=== PATIENT | female | born 1990 ===

== ENCOUNTER 2018-10-09 06:13 | Emergency (ER) | payer MEDICAID ==
[2018-10-09 06:28] VITALS: PULSE 88; RESP 18; TEMP 98.7; O2SAT 100
--- NOTE | 2018-10-09 06:46 | ED PDOC ---
HPI: Psych/Substance Abuse Time Seen by Provider: 10/09/18 06:38 Chief Complaint (Nursing): Psychiatric Evaluation Chief Complaint (Provider): Psychiatric Evaluation History Per: Patient History/Exam Limitations: no limitations Onset/Duration Of Symptoms: Days (earlier today ) Current Symptoms Are (Timing): Better Additional Complaint(s): 27 year old female with a past medical history of depression, presents to the ED for a crisis evaluation. Patient reports she was brought to the ED after a verbal altercation with her mom. She states her mom falsely said the patient is suicidal to the [place] [employer] and the patient disagrees. Patient is upset and crying in the course of confrontation. She states she has three children and currently wants to go home. Otherwise, she denies suicidal ideation or any other complaints. PMD: Non CPH Provider Past Medical History Reviewed: Historical Data, Nursing Documentation, Vital Signs Vital Signs: Last Vital Signs Temp 98.7 F 10/09/18 06:16 Pulse 88 10/09/18 06:16 Resp 18 10/09/18 06:16 BP 162/107 H 10/09/18 06:16 Pulse Ox 100 10/09/18 06:16 - Medical History PMH: Anemia, Anxiety, Depression, HTN Denies: Diabetes, Hepatitis, HIV, Chronic Kidney Disease, Seizures, Sexually Transmitted Disease - Surgical History Surgical History: - Family History Family History: States: Unknown Family Hx - Social History Current smoker - smoking cessation education provided: No Alcohol: None Drugs: Denies - Immunization History Hx Tetanus Toxoid Vaccination: No Hx Influenza Vaccination: No Hx Pneumococcal Vaccination: No - Home Medications Home Medications: Ambulatory Orders Medication Instructions Recorded Cetirizine HCl [Zyrtec Allergy] 10 mg PO DAILY 08/10/18 Fluticasone Nasal [Flonase] 1 actuation NS BID 08/10/18 - Allergies Allergies/Adverse Reactions: Allergies Allergy/AdvReac Type Severity Reaction Status Date / Time No Known Allergies Allergy Verified 08/10/18 19:37 Review of Systems ROS Statement: Except As Marked, All Systems Reviewed And Found Negative Psych: Negative for: Suicidal ideation, Other (homicidal ideation) Physical Exam - Reviewed Nursing Documentation Reviewed: Yes Vital Signs Reviewed: Yes - Physical Exam Appears: Positive for: Non-toxic, No Acute Distress Head Exam: Positive for: ATRAUMATIC, NORMAL INSPECTION, NORMOCEPHALIC Skin: Positive for: Normal Color, Warm, Dry. Negative for: Rash Eye Exam: Positive for: EOMI, Normal appearance, PERRL ENT: Positive for: Normal ENT Inspection Neck: Positive for: Normal, Painless ROM, Supple. Negative for: Decreased ROM Cardiovascular/Chest: Positive for: Regular Rate, Rhythm. Negative for: Murmur Respiratory: Positive for: Normal Breath Sounds. Negative for: Decreased Breath Sounds, Respiratory Distress Gastrointestinal/Abdominal: Positive for: Normal Exam, Soft. Negative for: Tenderness, Guarding, Rebound Back: Positive for: Normal Inspection Extremity: Positive for: Normal ROM. Negative for: Tenderness, Pedal Edema, Deformity Neurologic/Psych: Positive for: Alert, Oriented (x3) - ECG O2 Sat by Pulse Oximetry: 100 (RA) Pulse Ox Interpretation: Normal Medical Decision Making Medical Decision Making: Impression: 27 year old female presenting for referred crisis evaluation Plan: --1:1 Observation --Crisis evaluation --Reevaluation 07:[address] Voss by me pending reevaluation and disposition. Scribe Attestation: Documented by Noe Frederick, acting as a scribe for Meliton Jo MD Provider Scribe Attestation: All medical record entries made by the Scribe were at my direction and personally dictated by me. I have reviewed the chart and agree that the record accurately reflects my personal performance of the history, physical exam, medical decision making, and the department course for this patient. I have also personally directed, reviewed, and agree with the discharge instructions and disposition. Disposition - Clinical Impression Clinical Impression: Anxiety - Disposition Disposition: Transfer of Care Disposition Time: 07:00 Condition: STABLE Additional Instructions: FOLLOW-UP ADVISED. Instructions: Anxiety, Adult (DC) Forms: [employer] (Slovak) Patient Signed Over To: Urvashi Voss (pending reevaluation )
--- NOTE | 2018-10-09 07:11 | ED PDOC ---
- ECG O2 Sat by Pulse Oximetry: 100 (RA) Pulse Ox Interpretation: Normal Medical Decision Making Medical Decision Making: Time: 699 --Patient care endorsed by Dr. Jo, pending reevaluation and disposition. Time: 716 --Patient evaluation by wall worker deemed patient is not suicidal at this time. --Removed 1:1 observation at this time. Time: 733 --Patient has been diagnosed with Anxiety. --Patient is currently stable and will be discharged home. --Follow up instructions given. Scribe Attestation: Documented by Kris Sims, acting as a scribe for Urvashi Voss MD. Provider Scribe Attestation: All medical record entries made by the Scribe were at my direction and personally dictated by me. I have reviewed the chart and agree that the record accurately reflects my personal performance of the history, physical exam, medical decision making, and the department course for this patient. I have also personally directed, reviewed, and agree with the discharge instructions and disposition. Disposition - Clinical Impression Clinical Impression: Anxiety - POA Present On Arrival: None - Disposition Disposition: Routine/Home Disposition Time: 07:34 Condition: STABLE Additional Instructions: FOLLOW-UP ADVISED. Instructions: Anxiety, Adult (DC) Forms: [employer] (Central African)
[2018-10-09 08:26] VITALS: BP 138/90
== END 2018-10-09 07:57 | disposition home or self-care (01) ==
LOC: H.ER 06:13
DX: F41.9 Anxiety disorder, unspecified (principal); Z86.59 Personal history of other mental and behavioral disorders; I10 Essential (primary) hypertension

== ENCOUNTER 2018-10-10 20:51 | Inpatient (IN) | payer MEDICAID ==
[2018-10-10 20:58] VITALS: O2SAT 100
[2018-10-10 22:02] LABS: BASO # 0.1 K/uL (0.0-0.2); BASO % 0.8 % (0.0-2.0); EOS # 0.1 K/uL (0.0-0.7); EOS % 0.5 % (0.0-4.0); LYMPH # 3.5 K/uL (1.0-4.3); LYMPH % 35.6 % (20.0-40.0); MEAN CELL VOLUME 88.6 fl (81.0-99.0); MEAN CORPUSCULAR HEMOGLOBIN 29.9 pg (27.0-31.0); MEAN CORPUSCULAR HGB CONC 33.8 g/dL (33.0-37.0); MEAN PLATELET VOLUME 8.8 fl (7.2-11.7); MONO # 0.9 K/uL (0.0-0.8); MONO % 8.6 % (0.0-10.0); NEUT # 5.4 K/uL (1.8-7.0); NEUT % 54.5 % (50.0-75.0); NRBC % 0.1 % (0.0-0.0); RBC 4.69 Mil/uL (3.80-5.20); RED CELL DISTRIBUTION WIDTH 12.7 % (11.5-14.5); WHITE BLOOD COUNT 9.9 K/uL (4.8-10.8)
[2018-10-10 22:12] LABS: ALB/GLOB RATIO 1.4 (1.0-2.1); ALBUMIN 4.9 g/dL (3.5-5.0); ALT/SGPT 83 U/L (9-52); AST/SGOT 142 U/L (14-36); BLOOD UREA NITROGEN 10 mg/dl (7-17); CALCIUM 9.7 mg/dL (8.4-10.2); GFR NON-AFRICAN AMERICAN > 60
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
[2018-10-10] MEDS ORDERED: Alum-Mag Hydrox-Simethicone Susp (30 mL) PO PRN (23:52)
[2018-10-10] MEDS ORDERED: DiphenhydrAMINE 50 mg/ml Inj IM PRN (23:52)
[2018-10-10] MEDS ORDERED: Magnesium Hydroxide Susp 30 ml UD PO PRN (23:52)
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
[2018-10-11] MEDS ORDERED: Risperidone M tab 1 MG PO STA (10:25)
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
[2018-10-11 12:40] LABS: SQUAMOUS EPITHIAL 5 /hpf (0-5); URINE BACTERIA RARE (<OCC); URINE BILIRUBIN NEGATIVE (NEGATIVE); URINE BLOOD SMALL (NEGATIVE); URINE CLARITY SLIGHTY-CLOUDY (Clear); URINE COLOR YELLOW (YELLOW); URINE GLUCOSE (UA) NEG (NEGATIVE); URINE LEUKOCYTE ESTERASE NEG Leu/uL (Negative); URINE PROTEIN NEGATIVE (NEGATIVE)
[2018-10-11 13:05] LABS: BARBITURATES, UR NEGATIVE (NEGATIVE); BENZODIAZEPINES, UR NEGATIVE (NEGATIVE); OPIATES, UR NEGATIVE (NEGATIVE); PHENCYCLIDINE, UR NEGATIVE (NEGATIVE)
--- NOTE | 2018-10-11 14:48 | RAD ---
Date of service: 10/11/2018 HISTORY: routine COMPARISON: No prior. FINDINGS: LUNGS: The lungs are well inflated and clear. PLEURA: No pleural effusions or pneumothorax. CARDIOVASCULAR: The heart is normal in size. No aortic atherosclerotic calcifications present. OSSEOUS STRUCTURES: Within normal limits for the patient's age. VISUALIZED UPPER ABDOMEN: Normal. OTHER FINDINGS: None. IMPRESSION: No active pulmonary disease.
[2018-10-11] MEDS: OXcarbazepine 300 mg/5 ml Syringe PO SCH (17:12)
--- NOTE | 2018-10-11 18:19 | CARD ---
APPROVED REPORT Date of service: 10/11/2018 EKG Measurement Heart [id number] <Conclusion> Normal sinus rhythm Normal ECG
[2018-10-11] MEDS ORDERED: Risperidone M tab 1 MG PO SCH (22:00)
[2018-10-12] MEDS: OXcarbazepine 300 mg/5 ml Syringe PO SCH ×2 (09:00→19:10)
[2018-10-12] MEDS ORDERED: Venlafaxine 37.5 mg ER Cap PO SCH (09:00)
[2018-10-12] MEDS ORDERED: Risperidone M tab 1 MG PO SCH (09:00)
--- NOTE | 2018-10-12 14:21 | PCM.PYCHPN ---
Psychiatric Progress Note - Psychiatric Progress Note Patient seen today, length of contact: pt evaluated discussed with team chart reviewed Patient Chief Complaint: I want to go home Problems Identified/Issues Discussed: pt evaluated angry, irritable, labile, threatening towards staff, presenting with aggressive behaviour m banging the phone, expressing paranoid delusions, towards staff and her family, refusing medications, needs frequent redirection, pt had to be give IM prn medications as she was threatening and presenting as danger to self and others Medical Problems: at least two inpatient hospitalizations, pt non compliant DSM 5 Symptoms Update: schizoaffective disorder bipolar Medication Change: Yes (increase risperidone ) Medical Record Reviewed: Yes Mental Status Examination - Cognitive Function Orientation: Person, Place Attention: Poor Concentration: Poor Association: Loose Fund of Knowledge: Poor Decription of patient's judgement and insights: poor insight and judgment - Mood Mood: Anxious - Affect Additional comments: angry , labile - Speech Speech: Loud - Formal Thought Process Formal Thought Process: Hallucinations, Delusions, Paranoia - Suicidal Ideation Suicidal Ideation: No - Homicidal Ideation Homicidal Ideation: Yes Goal/Treatment Plan - Goal/Treatment Plan Need for Continued Stay: Remain at risks for inpatient hospitalization, Discharge may exacerbated symptoms Progress Toward Problem(s) and Goals/Treatment Plan: pt on the unit refusing medications, verbally aggressive to staff , signed 48 hour notice requesting to be discharged , patient referred for screening for involuntary admission as she continues to be danger for self and others , pt accepted and awaiting a bed increase risperidone 3mg qhs encourage medication compliance coallteral infroamtion from family cbt group and supportive therapy
[2018-10-12] MEDS: Risperidone M tab 1 MG PO SCH (21:19)
--- NOTE | 2018-10-13 09:03 | PCM.PYCHPN ---
Psychiatric Progress Note - Psychiatric Progress Note Patient seen today, length of contact: Pt evaluated, chart reviewed Patient Chief Complaint: "I'm fine" Problems Identified/Issues Discussed: Patient was screened by [facility] and found to meet criteria for involuntary p sychiatric admission. She is guarded and minimizing symptoms. She is easily agitated and labile. She is currently refusing medications. Medication Change: No Medical Record Reviewed: Yes Consults ordered or reviewed: Medicine consult Mental Status Examination - Cognitive Function Orientation: Person, Place, Situation, Time Memory: Intact Attention: Poor Concentration: Poor Association: Loose Fund of Knowledge: WNL Decription of patient's judgement and insights: Poor I/J - Mood Mood: Neutral - Affect Affect: Other (Labile) - Speech Speech: Appropriate - Formal Thought Process Formal Thought Process: Delusions, Paranoia Psychotic Thoughts and Behaviors: +Paranoia - Suicidal Ideation Suicidal Ideation: No - Homicidal Ideation Homicidal Ideation: No Goal/Treatment Plan - Goal/Treatment Plan Need for Continued Stay: Remain at risks for inpatient hospitalization, Discharge may exacerbated symptoms Progress Toward Problem(s) and Goals/Treatment Plan: Schizoaffective Disorder -Transfer to [facility] for involuntary psychiatric admission when bed is available -Continue to offer medications -Medicine consult
[2018-10-13] MEDS: OXcarbazepine 300 mg/5 ml Syringe PO SCH ×2 (09:28→19:21)
[2018-10-13 09:30] VITALS: RESP 18
[2018-10-13 17:21] VITALS: BP 146/92; PULSE 92; TEMP 98.2
[2018-10-13] MEDS: Risperidone M tab 1 MG PO SCH (21:29)
--- NOTE | 2018-10-14 08:25 | PCM.PYCHDC ---
Mental Status Examination - Mental Status Examination Orientation: Person, Place, Situation, Time Memory: Intact Mood: Neutral Affect: Other (Labile) Speech: Appropriate Attention: Poor Concentration: Poor Association: Loose Formal Thought Process: Delusions, Paranoia, Loosening of associations Description of patient's judgement and insight: Poor I/J Psychotic Thoughts and Behaviors: +Paranoia Suicidal Ideation: No Current Homicidal Ideation?: No Discharge Summary - Discharge Note Reason for Hospitalization: As per initial HPI note: pt is 27 ys old female with previous psychiatric diagnosis of psychotic disorder/ depression and cannabis abuse, brought to ER by EMS due to psychotic disorganized behaviour and destruction of property, pt has not been compliant with medications for at least two years, for past few days had decreased sleep, pacing all night pt started to exhibit disorganized behaviour, observed talking to herself and responding to internal stimuli she also started exhibiting aggressive behaviour, punching huynh, causing holes and destroying her furniture on the unit pt is guarded evasive paranoid, poor eye contact refusing to have any medical check up, labile with unprovoked crying episodes, with delusions of persecution stating that her whole family members are against her and there are people in the neighborhood planning against her since childhood, pt has no insight into illness, refusing medications, appears internally preoccupied denied command hallucinations denied s/hi collateral information/pt sister Trini ' As per Trini, pt has not slept for the past three days, non-compliant with medication since 2 years ago, lost her job and vandalized parents home. Pt punched the wall and left two holes in the wall , broke all her belongings off her dresser and broke parents door. Pt attempted to take the girls outside for a walk to visit pt D.J friend. Pt reports pt was last admitted to [facility] three years ago and dx with psychosis. Pt is combative with outburst, irritable, mood swings, and talks to someone who is not there while listening to music. Pt was yelling out the wi ndow to no one saying you fucking bitch as per sister Trini. Pt is not sleeping and is constantly moving. As per Trini, pt appeared to be on something today and when Trini questioned pt, pt went into her room. Consultations:: List each consultation separately and include: 1. Reason for request. 2. Findings. 3. Follow-up Consultations: Medicine consult Summary of Hospital Course include:: 1. Description of specific treatment plan utilized for patients during their course of treatmen. 2. Summarize the time- course for resolution of acute symptoms and/or regressed behaviors. 3. Describe issues identified and worked on during hospitalization. 4. Describe medication utilized. 5. Describe medical problems identified and treated. 6. Reassessment of suicide risk Summary of Hospital Course: Patient was admitted to the psychiatry unit. Individual and group therapy were provided. Patient refused prescribed medications (Benztropin 1 mg PO HS, Trileptal 300 mg PO BID and Risperdal 3 mg PO HS). She submitted a 48 hr letter requesting to be discharged; was screened, accepted for involuntary psychiatric admission and transferred to other acute care hospital for continued treatment. - Final Diagnosis (DSM 5) Condition upon Discharge: SERIOUS DSM 5: Schizoaffective Disorder Disposition: Trans to Other Acute Care Hosp Follow-up Treatment Plan: Schizoaffective Disorder -Transfer for involuntary psychiatric admission - Smoking Cessation Smoking Cessation Medication prescribed: No Reason for not providing: Not indicated - Antipsychotic Medications Pt discharged on 2 or more routine antipsychotic medications: No
--- NOTE | 2018-10-14 22:49 | CP.PCM.CON ---
History of Present Illness - History of Present Illness History of Present Illness: This is a 27 y/o female admitted for Bipolar disorder with psychosis features. She has a hx of HTN but not on anymedications She denies any other medical issues. Past Patient History - Infectious Disease Hx of Infectious Diseases: None - Past Social History Smoking Status: Former Smoker - CARDIAC Hx Hypertension: Yes - PULMONARY Hx Tuberculosis: No - NEUROLOGICAL Hx Seizures: No - HEENT Hx HEENT Problems: No - RENAL Hx Chronic Kidney Disease: No - ENDOCRINE/METABOLIC Hx Endocrine Disorders: No - HEMATOLOGICAL/ONCOLOGICAL Hx Anemia: Yes Hx Human Immunodeficiency Virus (HIV): No - INTEGUMENTARY Hx Dermatological Problems: No - MUSCULOSKELETAL/RHEUMATOLOGICAL Hx Musculoskeletal Disorders: No - GASTROINTESTINAL Hx Gastrointestinal Disorders: No - GENITOURINARY/GYNECOLOGICAL Hx Sexually Transmitted Disorders: No - PSYCHIATRIC Hx Anxiety: Yes Hx Bipolar Disorder: Yes Hx Depression: Yes - SURGICAL HISTORY Hx Section: Yes (x2) - ANESTHESIA Hx Anesthesia: Yes Hx Anesthesia Reactions: No Hx Malignant Hyperthermia: No Has any member of the family had a problem w/ anesthesia?: No Meds Home Medications: Home Medication List Medication Instructions Recorded Confirmed Type Benztropine [Cogentin] 1 mg PO HS tab 10/13/18 Rx OXcarbazepine [Trileptal] 300 mg PO BID syr 10/13/18 Rx Risperidone [Risperdal M-TAB] 3 mg PO HS odt 10/13/18 Rx Allergies/Adverse Reactions: Allergies Allergy/AdvReac Type Severity Reaction Status Date / Time No Known Allergies Allergy Verified 10/10/18 20:53 Physical Exam - Head Exam Head Exam: NORMAL INSPECTION - Eye Exam Eye Exam: Normal appearance - ENT Exam ENT Exam: Mucous Membranes Moist - Respiratory Exam Respiratory Exam: Clear to Auscultation Bilateral - Cardiovascular Exam Cardiovascular Exam: REGULAR RHYTHM - GI/Abdominal Exam GI & Abdominal Exam: Normal Bowel Sounds - Neurological Exam Neurological exam: CN II-XII Intact, Normal Gait Results - Vital Signs Recent Vital Signs: Last Vital Signs Temp 98.2 F 10/13/18 17:00 Pulse 92 H 10/13/18 17:00 Resp 18 10/13/18 17:00 BP 146/92 H 10/13/18 17:00 Pulse Ox 100 10/11/18 04:36 - Labs Result Diagrams: 10/10/18 21:59 10/10/18 21:59 Assessment & Plan (1) Hypertension Status: Acute (2) Schizophrenia Status: Acute - Assessment and Plan (Free Text) Plan: low salt diet will monitor patient refused to take any meds for HTN for now.
== END 2018-10-13 23:05 | disposition short-term general hospital (02) | DRG 430 ==
LOC: H.ER 20:51 → H.ERHOLD 22:24 → H.PSYCH 23:50
PROVIDERS: ADMIT Psychiatry & Neurology Psychiatry; ATTEND Psychiatry & Neurology Psychiatry
PROC: GZ51ZZZ Individual Psychotherapy, Behavioral (ICD-10-PCS; principal; 2018-10-10)
PROC: GZ56ZZZ Individual Psychotherapy, Supportive (ICD-10-PCS; 2018-10-10)
DX: F31.64 Bipolar disorder, current episode mixed, severe, with psychotic features (principal); I10 Essential (primary) hypertension; Z79.899 Other long term (current) drug therapy; Z87.891 Personal history of nicotine dependence; Z91.14 Patient's other noncompliance with medication regimen; Z91.19 Patient's noncompliance with other medical treatment and regimen; Z91.410 Personal history of adult physical and sexual abuse; D64.9 Anemia, unspecified; F12.10 Cannabis abuse, uncomplicated; F41.9 Anxiety disorder, unspecified

== ENCOUNTER 2018-11-03 15:20 | Inpatient (IN) | payer MEDICAID ==
[2018-11-03 15:30] VITALS: O2SAT 100
--- NOTE | 2018-11-03 16:05 | ED PDOC ---
HPI: Psych/Substance Abuse Time Seen by Provider: 11/03/18 15:29 Chief Complaint (Nursing): Psychiatric Evaluation Chief Complaint (Provider): Psychiatric Evaluation History Per: Patient History/Exam Limitations: no limitations Additional Complaint(s): 27 year old female with a history of schizophrenia presents to the ED for psychiatric evaluation. Today, patient had a mobile crisis wellness check at home. During which it was discovered she has not been taking her medications because she does not like the way they make her feel. Crisis recommended she come to this ED for further evaluation. Patient was recently discharged from [facility] on 10/26/18 and has not taken her medications since. Patient denies hallucinations to provider, despite reporting she had them to the nurse. She denies SI, HI, drug or alcohol abuse. Patient is reserved in providing history. PMD: [place] Past Medical History Reviewed: Historical Data, Nursing Documentation, Vital Signs Vital Signs: Last Vital Signs Temp 98.6 F 11/03/18 15:27 Pulse 74 11/03/18 15:27 Resp 18 11/03/18 15:27 BP 124/66 11/03/18 15:27 Pulse Ox 100 11/03/18 15:27 - Medical History PMH: Anemia, Anxiety, Bipolar Disorder, Depression, HTN Denies: Diabetes, Hepatitis, HIV, Chronic Kidney Disease, Seizures, Sexually Transmitted Disease - Surgical History Surgical History: - Family History Family History: States: Unknown Family Hx - Social History Alcohol: Other (denies) Drugs: Denies - Immunization History Hx Tetanus Toxoid Vaccination: No Hx Influenza Vaccination: No Hx Pneumococcal Vaccination: No - Home Medications Home Medications: Ambulatory Orders Medication Instructions Recorded Benztropine [Cogentin] 1 mg PO HS tab 10/13/18 OXcarbazepine [Trileptal] 300 mg PO BID syr 10/13/18 Risperidone [Risperdal M-TAB] 3 mg PO HS odt 10/13/18 - Allergies Allergies/Adverse Reactions: Allergies Allergy/AdvReac Type Severity Reaction Status Date / Time No Known Allergies Allergy Verified 10/10/18 20:53 Review of Systems ROS Statement: Except As Marked, All Systems Reviewed And Found Negative (and as per HPI) Physical Exam - Reviewed Nursing Documentation Reviewed: Yes Vital Signs Reviewed: Yes - Physical Exam Appears: Positive for: No Acute Distress (but tearful) Head Exam: Positive for: ATRAUMATIC, NORMOCEPHALIC Skin: Positive for: Warm, Dry Eye Exam: Positive for: EOMI, PERRL ENT: Positive for: Normal ENT Inspection Neck: Positive for: Painless ROM, Supple Cardiovascular/Chest: Positive for: Regular Rate, Rhythm. Negative for: Murmur Respiratory: Positive for: Normal Breath Sounds. Negative for: Respiratory Distress Gastrointestinal/Abdominal: Positive for: Soft. Negative for: Tenderness Back: Positive for: Normal Inspection. Negative for: Decreased ROM Extremity: Positive for: Normal ROM. Negative for: Deformity Lymphatic: Negative for: Adenopathy Neurological/Psych: Positive for: Awake, Alert, Oriented (x3), Mood/Affect (normal mood but somewhat angry and flat affect), Other (does not appear to have any internal stimuli ) - Laboratory Results Result Diagrams: 11/03/18 16:10 11/03/18 16:10 - ECG O2 Sat by Pulse Oximetry: 100 (RA) Pulse Ox Interpretation: Normal Medical Decision Making Medical Decision Making: Time: 1530 Impression: schizophrenia, noncompliant with medication Plan: --Alcohol serum --CMP --Urine drug screen --Valproic acid --Crisis evaluation --u preg --u dip --CBC Medically stable for psychiatric admission if necessary Time: 1827 --Patient seen by crisis, patient to be admitted under Dr. White. Diagnoses Schizoaffective disorder and bipolar. Scribe Attestation: Documented by Kristina Vargas, acting as a scribe for Kim Lopez MD. Provider Scribe Attestation: All medical record entries made by the Scribe were at my direction and personally dictated by me. I have reviewed the chart and agree that the record accurately reflects my personal performance of the history, physical exam, medical decision making, and the department course for this patient. I have also personally directed, reviewed, and agree with the discharge instructions and disposition. Disposition - Clinical Impression Clinical Impression: Schizophrenia - Disposition Disposition Time: 18:28 Condition: STABLE - Pt Status Changed To: Hospital Disposition Of: Inpatient - Admit Certification Admit to Inpatient:: After my assessment, the patient will require hospitalization for at least two midnights. This is because of the severity of symptoms shown, intensity of services needed, and/or the medical risk in this patient being treated as an outpatient. - POA Present On Arrival: None
[2018-11-03 16:15] LABS: BASO # 0.1 K/uL (0.0-0.2); BASO % 0.6 % (0.0-2.0); EOS # 0.1 K/uL (0.0-0.7); HEMOGLOBIN 13.8 g/dL (12.0-16.0); LYMPH # 3.2 K/uL (1.0-4.3); MEAN CELL VOLUME 89.7 fl (81.0-99.0); MEAN CORPUSCULAR HEMOGLOBIN 30.7 pg (27.0-31.0); MEAN CORPUSCULAR HGB CONC 34.2 g/dL (33.0-37.0); MEAN PLATELET VOLUME 8.5 fl (7.2-11.7); MONO # 0.7 K/uL (0.0-0.8); MONO % 8.3 % (0.0-10.0); NEUT # 4.2 K/uL (1.8-7.0); NEUT % 51.1 % (50.0-75.0); NRBC % 0.1 % (0.0-0.0); RBC 4.48 Mil/uL (3.80-5.20); RED CELL DISTRIBUTION WIDTH 13.1 % (11.5-14.5); WHITE BLOOD COUNT 8.2 K/uL (4.8-10.8)
[2018-11-03 16:42] LABS: ALB/GLOB RATIO 1.3 (1.0-2.1); ALBUMIN 4.6 g/dL (3.5-5.0); ALT/SGPT 44 U/L (9-52); AST/SGOT 43 U/L (14-36); BLOOD UREA NITROGEN 17 mg/dl (7-17); CALCIUM 9.6 mg/dL (8.4-10.2); GFR NON-AFRICAN AMERICAN > 60
[2018-11-03 17:28] LABS: BARBITURATES, UR NEGATIVE (NEGATIVE); BENZODIAZEPINES, UR NEGATIVE (NEGATIVE); OPIATES, UR NEGATIVE (NEGATIVE); PHENCYCLIDINE, UR NEGATIVE (NEGATIVE)
[2018-11-03] MEDS ORDERED: DiphenhydrAMINE 50 mg/ml Inj IM PRN (20:53)
[2018-11-03] MEDS ORDERED: Alum-Mag Hydrox-Simethicone Susp (30 mL) PO PRN (20:53)
[2018-11-03] MEDS ORDERED: Magnesium Hydroxide Susp 30 ml UD PO PRN (20:53)
[2018-11-03] MEDS: Divalproex 500 mg ER (ONCE DAILY formulation) PO SCH (22:14)
[2018-11-03 22:38] LABS: SQUAMOUS EPITHIAL 11 /hpf (0-5); URINE BACTERIA RARE (<OCC); URINE BILIRUBIN NEGATIVE (NEGATIVE); URINE BLOOD NEGATIVE (NEGATIVE); URINE CLARITY CLOUDY (Clear); URINE COLOR YELLOW (YELLOW); URINE GLUCOSE (UA) NEG (NEGATIVE); URINE LEUKOCYTE ESTERASE NEG Leu/uL (Negative); URINE PROTEIN NEGATIVE (NEGATIVE); URINE UROBILINOGEN 0.2-1.0 mg/dL (0.2-1.0)
--- NOTE | 2018-11-03 22:40 | PCM.BM ---
<NadirRosalina Isabelle - Last Filed: 11/03/18 22:36> Treatment Plan Problems - Problems identified on initial assessmt Medication nonadherence Date Initiated: 11/03/18 Time Initiated: 22:37 Assessment reference: NA Status: Active Auditory Hallucinations Date Initiated: 11/03/18 Time Initiated: 22:37 Assessment reference: NA Status: Active Altered Thought Process Date Initiated: 11/03/18 Time Initiated: 22:38 Assessment reference: NA Status: Active Treatment assets and liabiliti Patient Assests: cooperative, ADL independent, physically healthy, good support system, negotiates basic needs Patient Liabilities: relationship conflicts, substance abuse - Milieu Protocol Maintain good personal hygiene: daily Encourage regular showers, every shift Remind patient to perform daily oral care, every shift Assist patient to perform ADL's Conduct patient checks and document Observation sheet: Q15 minutes Maintain personal safety: every shift Educate patient to report safety concerns to staff, every shift Monitor environment for contraband/sharps Medication safety: Monitor for expected outcome, potential side effects: every shift, Assess barriers to learning: every shift, Assess readiness for medication education: every shift <Richard Cevallos - Last Filed: 11/04/18 15:46> Family Contact Family involvement: Family/SO is involved Family contact: Patient agrees to contact, Family has been contacted by patient, Telephone contact initiated by staff Family contact name: Hailey - Sister Family contacted how many times per week?: 2 Family contact comment: Pt provided blog writer with verbal consent to speak with her sister, Hailey. Grooming Assistant spoke with Hailey [phone] to inform her that pt has again signed a 48 hour notice and the unit has already initiated the [facility] [place]. Process re-explained to Hailey and let her know that family will be contact each step of the way. Hailey reported that pt was recently released from [facility] and she did not appear any better upon discharge. Family advocated for continued hospitalization without avail. Family also petitioned for pt to be administered an antipsychotic injection, but [facility] did not initiate. Pt refused to take her medications as soon as she was discharged. - Goals for Treatment Patient goals for treatment: Pt unable to provide goals as she actively wants to leave and signed a 48 hour notice. Discharge/Continuing Care - Education Needs Education Needs: Family Medication, Family Diagnosis/Disease Process, Family Coping Skills, Family Placement options, Family Community resources, Family Aftercare Safety Plan, Patient Medication, Patient Diagnosis/Disease Process, Patient Coping Skills, Patient Placement options, Patient Community resources, Patient Aftercare Safety Plan - Discharge Discharge Criteria: Tolerates medication w/o severe side effects, Free of paranoid thoughts, Free of agitation, Normal sleep pattern, Ability to care for self, Reduction of target symptoms Discharge to:: Home, With Family - Treatment Team Participation Discussed with Family/SO: Yes Was Patient/Family/SO present at Treatment Team Meeting: Yes <Tone White - Last Filed: 11/05/18 13:34> - Diagnosis (1) Schizoaffective disorder Status: Acute Interventions: start risperidone and depakote 11/05/18 13:33
--- NOTE | 2018-11-04 13:14 | PCM.PSYCH ---
Initial Psychiatric Evaluation - Initial Psychiatric Evaluation Chief Complaint (in patient's own words): I am hearing music in my head History of Present Illness and Precipitating Events: pt is 27 ys old female with diagnosis of schizoaffective disorder, non compliant with medications or follow up brought to ER by mobile crisis due to non compliance with medications, resulting in disorganized behaviour and destruction of property pt on evaluation, reported that she has not been compliant with medications, presenting with labile affect, internally preoccupied, laughing inappropriately and responding to internal stimuli with thought blocking , pt presenting with limited insight reporting she does not need medications, pt reported having auditory hallucinations, of music and mumbling voices, denied command ahllucinations, denied active thoughts of self harm on the unit collateral information /pt's mother, Cathi GarciaInhjteu-[phone], whom reported that pt has been admitted to [facility] ED for about 3 days about 2 weeks and she was recently discharge from [facility] (pt stayed there for 13 days and was discharged on 10/26/18). Pt's mother reported that after pt had her second child she was diagnosed with depression and then she changed her demeanors. Pt's mother reported that pt was stressed out for a while and she believes pt had a "mental break down" that caused pt become diagnosed with Schizoaffective Disorder Bipolar Type. Pt's mother reported that pt does not sleep at all and she is usually pacing back and forth. Pt's mother reported that pt has 2 daughters and as being the grandmother;she has taken charge of caring for them. Pt's mother reported that pt does not want to take her psychotropic medication and she has been exhibiting bizarre behaviors, whereas pt "stares" at the ceiling and then laughs histerically. Pt's mother reported that she has noticed that pt continuously responds to internal stimuli. Pt's mother reported when pt becomes upset she throws stuff on the floor. Current Medications: Active Medications Generic Name Dose Route Start Last Admin Trade Name Freq PRN Reason Stop Dose Admin Acetaminophen 650 mg 11/03/18 20:53 Tylenol 325mg Tab PO Q4 PRN Pain, moderate (4-7) Al Hydrox/Mg Hydrox/Simethicone 30 ml 11/03/18 20:53 Maalox Plus 30 Ml PO Q4 PRN Dyspepsia Benztropine Mesylate 1 mg 11/04/18 22:00 Cogentin PO HS HUGO Diphenhydramine HCl 50 mg 11/03/18 20:53 Benadryl IM Q6 PRN Extrapyramidal S/S Unable PO Diphenhydramine HCl 50 mg 11/03/18 20:57 Benadryl PO HS PRN Sleep Divalproex Sodium 500 mg 11/03/18 22:00 11/03/18 22:14 Depakote Er(Once Daily) PO 500 mg HS HUGO Administration Divalproex Sodium 500 mg 11/04/18 12:[address](*Bid*) PO DAILY HUGO Haloperidol 5 mg 11/03/18 20:53 Haldol PO Q4 PRN Agitation Haloperidol Lactate 5 mg 11/03/18 20:53 Haldol IM Q4 PRN Agitation, Unable to Take PO Lorazepam 2 mg 11/03/18 20:53 Ativan IM Q4 PRN Anxiety/Agitation,Unable PO Lorazepam 1 mg 11/03/18 20:53 Ativan PO Q8 PRN Anxiety/Agitation Magnesium Hydroxide 30 ml 11/03/18 20:53 Milk Of Magnesia PO HS PRN Constipation Risperidone 2 mg 11/03/18 22:00 11/03/18 22:14 Risperdal Tab PO 2 mg HS HUGO Administration Risperidone 2 mg 11/04/18 12:45 Risperdal M-Tab PO DAILY HUGO Past Psychiatric History - Past Psychiatric History Explanation of prior treatment: multiple involuntary admissions, hx of non compliance History of Abuse: denied History of ETOH/Drug Use: denied Pertinent Medical Hx (Current Medical&Sleep Prob, Allergies): Allergies Allergy/AdvReac Type Severity Reaction Status Date / Time No Known Allergies Allergy Verified 10/10/18 20:53 Benztropine [Cogentin] 1 mg PO HS tab 10/13/18 OXcarbazepine [Trileptal] 300 mg PO BID syr 10/13/18 Risperidone [Risperdal M-TAB] 3 mg PO HS odt 10/13/18 Mental Status Examination - Personal Presentation Personal Presentation: Looks stated age Additional comments: over weight - Affect Additional comments: labile angry, irritable - Motor Activity Motor Activity: Psychomotor Agitation - Reliability in Providing Information Reliability in Providing Information: Poor, due to alteration in thoughts, Poor, due to altered mood - Speech Speech: Tangential - Mood Mood: Anxious - Formal Thought Process Formal Thought Process: Hallucinations, Delusions, Paranoia - Hallucinations/Delusions Hallucinations: Auditory - Obsessions/Compulsions Obsessions: No Compulsions: No - Cognitive Functions Orientation: Person Sensorium: Alert Attention/Concentration: Easily distracted Judgement: Imparied, as evidence by: Poor judgement, Imparied, as evidence by: Lack of insight into illness - Risk Risk: Elopement, Diminished functioning - Strength & Assets Inventory Strength & Assets Inventory: Family support - Limitations Additional comments: poor compliance DSM 5 DX - DSM 5 DSM 5 Diagnosis: schizoaffective disorder bipolar - Recommended/Plan of Treatment Treatment Recommendations and Plan of Treatment: start risperidone 2mg bid cogentin 1mg bid depakote 500mg bid encourage medication compliance internal medicine consult
[2018-11-04] MEDS: Risperidone M TAB 2 MG PO SCH (13:51)
[2018-11-04] MEDS: Divalproex 500 mg DR(BID formulation) PO SCH (14:30)
[2018-11-04] MEDS: Divalproex 500 mg ER (ONCE DAILY formulation) PO SCH (22:11)
--- NOTE | 2018-11-05 09:09 | CARD ---
APPROVED REPORT Date of service: 11/04/2018 EKG Measurement Heart [id number] <Conclusion> Normal sinus rhythm Normal ECG
[2018-11-05] MEDS: Risperidone M TAB 2 MG PO SCH (11:35)
[2018-11-05] MEDS: Divalproex 500 mg DR(BID formulation) PO SCH (11:37)
--- NOTE | 2018-11-05 13:33 | PCM.PYCHPN ---
Psychiatric Progress Note - Psychiatric Progress Note Patient seen today, length of contact: pt evaluated discussed with team chart reviewed Patient Chief Complaint: I want to leave Problems Identified/Issues Discussed: pt seen in treatment team, presenting with anxious mood, and labile affect, requesting to be discharged with lack of insight into illness, pt continues to be floridly psychotic, internally pre occupied, laughing inappropriately , responding to internal stimuli, denied command hallucinations, denied suicidal or homicidal ideation pt continues to refuse medications Medical Problems: multiple involuntary admissions, hx of non compliance DSM 5 Symptoms Update: schizoaffective disorder bipolar type Medication Change: No Medical Record Reviewed: Yes Mental Status Examination - Cognitive Function Orientation: Person Attention: WNL Concentration: Poor Association: Loose Fund of Knowledge: Poor Decription of patient's judgement and insights: poor insight and judgment - Mood Mood: Anxious, Euphoric - Affect Affect: Broad - Speech Speech: Loud - Formal Thought Process Formal Thought Process: Hallucinations, Delusions, Paranoia - Suicidal Ideation Suicidal Ideation: No - Homicidal Ideation Homicidal Ideation: No Goal/Treatment Plan - Goal/Treatment Plan Need for Continued Stay: Remain at risks for inpatient hospitalization, Discharge may exacerbated symptoms Progress Toward Problem(s) and Goals/Treatment Plan: pt has no insight into illness, refusing medications and requesting to be discharged 'pt was screened and accepted for involuntary admission, awaiting a bed risperidone 2mg bid cogentin 1mg bid depakote 500mg bid encourage medication compliance
[2018-11-05 16:05] VITALS: BP 144/83; PULSE 90; RESP 20; TEMP 98.1
--- NOTE | 2018-11-05 17:50 | CP.PCM.CON ---
History of Present Illness - History of Present Illness History of Present Illness: 27 yo female admitted to psych for schizoaffective disorder Patient seen and examined at bedside. No complaints offered at this time however states wants to leave denies chest pain, palpitations, abdominal pain, or sob. admits to audiatory hallucinations Meds: as per chart Allergies: as per chart Review of Systems - Review of Systems All systems: reviewed and no additional remarkable complaints except (mentioned above) Past Patient History - Infectious Disease Hx of Infectious Diseases: None - Past Social History Alcohol: Other (denies) Drugs: Denies - CARDIAC Hx Hypertension: Yes - PULMONARY Hx Tuberculosis: No - NEUROLOGICAL Hx Seizures: No - HEENT Hx HEENT Problems: No - RENAL Hx Chronic Kidney Disease: No - ENDOCRINE/METABOLIC Hx Endocrine Disorders: No - HEMATOLOGICAL/ONCOLOGICAL Hx Anemia: Yes Hx Human Immunodeficiency Virus (HIV): No - INTEGUMENTARY Hx Dermatological Problems: No - MUSCULOSKELETAL/RHEUMATOLOGICAL Hx Musculoskeletal Disorders: No - GASTROINTESTINAL Hx Gastrointestinal Disorders: No - GENITOURINARY/GYNECOLOGICAL Hx Sexually Transmitted Disorders: No - PSYCHIATRIC Hx Anxiety: Yes Hx Bipolar Disorder: Yes Hx Depression: Yes - SURGICAL HISTORY Hx Section: Yes (x2) - ANESTHESIA Hx Anesthesia: Yes Hx Anesthesia Reactions: No Hx Malignant Hyperthermia: No Meds Allergies/Adverse Reactions: Allergies Allergy/AdvReac Type Severity Reaction Status Date / Time No Known Allergies Allergy Verified 10/10/18 20:53 - Medications Medications: Current Medications Acetaminophen (Tylenol 325mg Tab) 650 mg PO Q4 PRN PRN Reason: Pain, moderate (4-7) Al Hydrox/Mg Hydrox/Simethicone (Maalox Plus 30 Ml) 30 ml PO Q4 PRN PRN Reason: Dyspepsia Benztropine Mesylate (Cogentin) 1 mg PO HS [facility] Last Admin: 11/04/18 22:10 Dose: Not Given Diphenhydramine HCl (Benadryl) 50 mg IM Q6 PRN PRN Reason: Extrapyramidal S/S Unable PO Diphenhydramine HCl (Benadryl) 50 mg PO HS PRN PRN Reason: Sleep Divalproex Sodium (Depakote Er(Once Daily)) 500 mg PO HS [facility] Last Admin: 11/04/18 22:11 Dose: Not Given Divalproex Sodium (Depakote Dr(*Bid*)) 500 mg PO DAILY [facility] Last Admin: 11/05/18 11:37 Dose: Not Given Haloperidol (Haldol) 5 mg PO Q4 PRN PRN Reason: Agitation Haloperidol Lactate (Haldol) 5 mg IM Q4 PRN PRN Reason: Agitation, Unable to Take PO Lorazepam (Ativan) 2 mg IM Q4 PRN PRN Reason: Anxiety/Agitation,Unable PO Lorazepam (Ativan) 2 mg PO Q4 PRN PRN Reason: Anxiety Lorazepam (Ativan) 2 mg PO Q6 PRN PRN Reason: for anxiety/agitation Magnesium Hydroxide (Milk Of Magnesia) 30 ml PO HS PRN PRN Reason: Constipation Risperidone (Risperdal Tab) 2 mg PO HS [facility] Last Admin: 11/04/18 22:11 Dose: Not Given Risperidone (Risperdal M-Tab) 2 mg PO DAILY [facility] Last Admin: 11/05/18 11:35 Dose: Not Given Physical Exam - Constitutional Appears: Well, Non-toxic, No Acute Distress - Head Exam Head Exam: NORMAL INSPECTION - Eye Exam Eye Exam: Normal appearance - Neck Exam Neck exam: Positive for: Normal Inspection - Respiratory Exam Respiratory Exam: NORMAL BREATHING PATTERN - Cardiovascular Exam Cardiovascular Exam: +S1, +S2 - GI/Abdominal Exam GI & Abdominal Exam: Soft - Neurological Exam Neurological exam: Alert, Oriented x3 - Psychiatric Exam Psychiatric exam: Depressed - Skin Skin Exam: Normal Color, Warm Results - Vital Signs Recent Vital Signs: Last Vital Signs Temp 98.1 F 11/05/18 16:05 Pulse 90 11/05/18 16:05 Resp 20 11/05/18 16:05 BP 144/83 11/05/18 16:05 Pulse Ox 100 11/04/18 03:15 - Labs Result Diagrams: 11/03/18 16:10 11/03/18 16:10 Assessment & Plan (1) Schizoaffective disorder Status: Acute - Assessment and Plan (Free Text) Plan: diagnostic data reviewed patient pending transfer to [facility] [place] for involuntary admission continue psych treatment rest of plan as ordered
== END 2018-11-05 19:45 | DRG 430 ==
LOC: H.ER 15:20 → H.ERHOLD 18:28 → H.PSYCH 20:46
PROVIDERS: ADMIT Psychiatry & Neurology Psychiatry; ATTEND Psychiatry & Neurology Psychiatry
DX: F25.0 Schizoaffective disorder, bipolar type (principal); Z91.14 Patient's other noncompliance with medication regimen; Z91.19 Patient's noncompliance with other medical treatment and regimen; I10 Essential (primary) hypertension; E66.3 Overweight; Z68.37 Body mass index [BMI] 37.0-37.9, adult